=== PATIENT | male | born 1990 | race American Indian/Alaskan Native ===

== ENCOUNTER 2017-12-10 17:48 | Inpatient (IN) | payer OTHER ==
--- NOTE | 2017-12-10 18:11 | Emergency Department Report ---
ED Abdominal Pain HPI - General Stated Complaint: ABD PAIN Time Seen by Provider: 12/10/17 17:55 Source: patient, EMS Mode of arrival: Stretcher Limitations: No Limitations - History of Present Illness Initial Comments: Patient is a 27-year-old male that presents emergency room with left lower quadrant abdominal pain 4 hours via EMS. Patient was picked up by EMS and found to be in SVT at 200 bpm by sono maneuver done by EMS and rate reduced to 150. Patient now complains of chest pain. Patient states the pain is in his left and right chest and is nonradiating. Patient states the pain is abdomen is a 10 out of 10. Patient also complains of shortness of breath. Patient states that the pain in his chest as a 10 out of 10. Patient states the pain in his chest and abdomen are better with rest. Patient states the pain is worse with movement. Patient denies fever and chills. MD Complaint: abdominal pain -: Sudden Location: LLQ Migration to: no migration Severity: severe Severity scale (0 -10): 10 Quality: stabbing Consistency: constant Improves With: rest Worsens With: movement Associated Symptoms: denies: nausea, vomiting, diarrhea, fever, chills, constipation, dysuria, hematemesis, hematochezia, melena, hematuria, anorexia, syncope - Related Data Previous Rx's Medication Instructions Recorded Last Taken Type Ibuprofen [Motrin 600 MG tab] 600 mg PO Q8H PRN #30 tablet 07/10/15 Unknown Rx traMADol [Ultram 50 MG tab] 50 mg PO Q6HR PRN #20 tablet 07/10/15 Unknown Rx Acetaminophen/Codeine [Tylenol #3] 1 tab PO Q6H PRN #12 tab 07/21/15 Unknown Rx Cephalexin [Keflex] 500 mg PO Q8HR #21 cap 07/21/15 Unknown Rx Cephalexin [Keflex] 500 mg PO Q6HR #20 capsule 08/08/15 Unknown Rx Ibuprofen [Motrin 800 MG tab] 800 mg PO Q8HR PRN #20 tablet 08/08/15 Unknown Rx Allergies Allergy/AdvReac Type Severity Reaction Status Date / Time No Known Allergies Allergy Verified 07/10/15 00:50 ED Review of Systems ROS: Stated complaint: ABD PAIN Other details as noted in HPI Comment: All other systems reviewed and negative Constitutional: denies: chills, fever Eyes: denies: eye pain, eye discharge, vision change ENT: denies: ear pain, throat pain Respiratory: denies: cough, shortness of breath, wheezing Cardiovascular: chest pain, palpitations Endocrine: no symptoms reported Gastrointestinal: abdominal pain. denies: nausea, diarrhea Genitourinary: denies: urgency, dysuria Musculoskeletal: denies: back pain, joint swelling, arthralgia Skin: denies: rash, lesions Neurological: denies: headache, weakness, paresthesias Psychiatric: denies: anxiety, depression Hematological/Lymphatic: denies: easy bleeding, easy bruising ED Past Medical Hx - Past Medical History Previous Medical History?: No - Surgical History Past Surgical History?: No - Family History Family history: hypertension - Social History Smoking Status: Current Every Day Smoker Substance Use Type: None - Medications Home Medications: Home Medications Medication Instructions Recorded Confirmed Last Taken Type Ibuprofen [Motrin 600 MG tab] 600 mg PO Q8H PRN #30 tablet 07/10/15 Unknown Rx traMADol [Ultram 50 MG tab] 50 mg PO Q6HR PRN #20 tablet 07/10/15 Unknown Rx Acetaminophen/Codeine [Tylenol #3] 1 tab PO Q6H PRN #12 tab 07/21/15 Unknown Rx Cephalexin [Keflex] 500 mg PO Q8HR #21 cap 07/21/15 Unknown Rx Cephalexin [Keflex] 500 mg PO Q6HR #20 capsule 08/08/15 Unknown Rx Ibuprofen [Motrin 800 MG tab] 800 mg PO Q8HR PRN #20 tablet 08/08/15 Unknown Rx ED Physical Exam - General Limitations: No Limitations General appearance: alert, in no apparent distress - Head Head exam: Present: atraumatic, normocephalic - Eye Eye exam: Present: normal appearance - ENT ENT exam: Present: mucous membranes moist - Neck Neck exam: Present: normal inspection - Respiratory Respiratory exam: Present: normal lung sounds bilaterally. Absent: respiratory distress - Cardiovascular Cardiovascular Exam: Present: regular rate, normal rhythm. Absent: systolic murmur, diastolic murmur, rubs, gallop - GI/Abdominal GI/Abdominal exam: Present: soft, normal bowel sounds - Rectal Rectal exam: Present: deferred - Extremities Exam Extremities exam: Present: normal inspection - Back Exam Back exam: Present: normal inspection - Neurological Exam Neurological exam: Present: alert, oriented X3 - Psychiatric Psychiatric exam: Present: normal affect, normal mood - Skin Skin exam: Present: warm, dry, intact, normal color. Absent: rash ED Course Vital Signs 12/10/17 12/10/17 18:04 18:25 Temperature 97.6 F Pulse Rate 155 H Respiratory 18 Rate Blood Pressure 148/82 O2 Sat by Pulse 96 96 Oximetry - Reevaluation(s) Reevaluation #1: Heart rate is improving with treatment. Will admit patient for further evaluation and treatment. hr = 100 12/10/17 20:08 Reevaluation #2: Abdominal CT pending. All results discussed with patient. Discussed plan of care and admission with patient. Patient agreed to be admitted. Hospitalist consulted. 12/10/17 20:22 ED Medical Decision Making - Lab Data Result diagrams: 12/10/17 18:30 12/10/17 18:30 - EKG Data -: EKG Interpreted by Nd EKG shows normal: sinus rhythm, axis, intervals, QRS complexes Rate: tachycardia - EKG Data Interpretation: other (sinus tachycardia on EKG.) - Medical Decision Making She is 27-year-old male that presented to the emergency room with SVT and tachycardic rhythm and abdominal pain. Patient will be admitted for further evaluation and treatment. Hospitalist was consulted. - Differential Diagnosis cp. sob. abd pain. svt,. tachycardia. Critical Care Time: Yes Critical care attestation.: If time is entered above; I have spent that time in minutes in the direct care of this critically ill patient, excluding procedure time. Critical Care Time: 45 minutes spent with patient for critical care time ED Disposition Clinical Impression: Chest pain, SVT (supraventricular tachycardia), Abdominal pain, SOB (shortness of breath) Disposition: OP ADMIT IP TO THIS HOSP Is pt being admited?: Yes Does the pt Need Aspirin: No Condition: Critical Time of Disposition: 20:37
[2017-12-10] MEDS ORDERED: LOPRESSOR IV ONE ×2 (18:14→18:21)
[2017-12-10] MEDS ORDERED: NACL 0.9% 1000 ML 1,000 ML IV ONE (18:21)
[2017-12-10] MEDS ORDERED: ASPIRIN PO ONE (18:24)
[2017-12-10 18:44] LABS: Basophils # (Auto) 0.1 K/mm3 (0.0-0.1); Basophils % (Auto) 0.5 % (0.0-1.8); Eosinophils # (Auto) 0.1 K/mm3 (0.0-0.4); Eosinophils % (Auto) 0.7 % (0.0-4.3); Hematocrit 39.9 % (35.5-45.6); Hemoglobin 13.4 gm/dl (11.8-15.2); Lymphocytes # (Auto) 1.4 K/mm3 (1.2-5.4); Lymphocytes % (Auto) 12.7 % (13.4-35.0); Mean Corpuscular HGB Conc 34 % (32-34); Mean Corpuscular Hemoglobin 30 pg (28-32); Mean Corpuscular Volume 88 fl (84-94); Monocytes # (Auto) 0.8 K/mm3 (0.0-0.8); Monocytes % (Auto) 6.9 % (0.0-7.3); Platelet Count 130 K/mm3 (140-440); Red Blood Count 4.52 M/mm3 (3.65-5.03); Red Cell Distribution Width 12.8 % (13.2-15.2)
[2017-12-10 19:01] LABS: BUN/Creatinine Ratio 8; Blood Urea Nitrogen 7 mg/dL (9-20); Calcium 8.9 mg/dL (8.4-10.2)
[2017-12-10 19:02] LABS: Alanine Aminotransferase 11 units/L (7-56); Albumin 4.1 g/dL (3.9-5); Hemolysis Index 6
--- NOTE | 2017-12-10 20:20 | Cat Scan Report ---
FINAL REPORT PROCEDURE: CT ABDOMEN PELVIS WO CON TECHNIQUE: Computerized axial tomography of the abdomen and pelvis was performed without intravenous contrast. This study is performed without intravascular contrast material and its sensitivity for abdominal and pelvic pathology, including neoplasms, inflammation, abscess, free fluid, thrombosis, arterial dissection and infarction, is reduced compared with a contrast enhanced study. HISTORY: Abdominal Pain COMPARISON: No prior studies are available for comparison. FINDINGS: Visualized lower thorax: There are infiltrates at the right lung base.. Liver: Normal size and attenuation. Spleen: Normal size and attenuation. Gallbladder and biliary system: Normal. Pancreas: Normal. Adrenals: Normal. Kidneys: There are no kidney stones or ureteral stones. There is no hydronephrosis.. GI tract: There is no bowel obstruction, colitis or enteritis. The appendix is normal.. Lymph nodes and mesentery: Normal. Vasculature: Normal. Bladder: Normal. Reproductive organs: Normal. Peritoneum: There is no ascites or free air, abscess or adenopathy.. Musculoskeletal structures: No significant abnormality. Other: None. IMPRESSION: There is no acute intra-abdominal abnormality. There are pulmonary infiltrates at the right lung base. Focal pneumonitis is suspected..
--- NOTE | 2017-12-10 21:17 | XRay Report ---
FINAL REPORT PROCEDURE: XR CHEST 1V AP TECHNIQUE: Chest radiograph anteroposterior view. CPT 50093 HISTORY: cp COMPARISON: No prior studies are available for comparison. FINDINGS: Heart: Normal. Mediastinum/Vessels: Normal. Lungs/Pleural space: Lungs are clear. There are no infiltrates, effusions or pneumothoraces.. Bony thorax: No acute osseous abnormality. Life support devices: None. IMPRESSION: No acute cardiopulmonary abnormality.
[2017-12-10] MEDS ORDERED: SODIUM CHLORIDE FLUSH SYRINGE 10 ML IV PRN (22:25)
[2017-12-10] MEDS ORDERED: ZOFRAN IV PRN (22:25)
--- NOTE | 2017-12-10 22:34 | History and Physical Report ---
History of Present Illness Date of examination: 12/10/17 History of present illness: 27-year-old man comes to the emergency room complaining of left groin pain that started since which she describes a throbbing sensation, constant, no radiation, intensity 7/10, cannot identify exacerbating or relieving factor. Patient also complaining of palpitation and chest pain. He was having SVT and was chemically converted. He said he has been having palpitation over the last 3 months with chest pain. The chest pain is in the left chest which he describes as a sharp pain, constant, unable to sound along the last 4, intensity followed today and no radiation. Admits to shortness of breath. He was recently admitted at [facility] for symptoms but was discharged from emergency room Review of systems Constitutional: no weight loss, chills Ears, eyes, nose, mouth and throat: no nasal congestion, no nasal discharge, no sinus pressure, no vision change, no red eye. Neck: No neck pain or rigidity. Cardiovascular: + chest pain, palpitations Respiratory: No cough Gastrointestinal: no abdominal pain, hematochezia Genitourinary : no dysuria, frequency , no hematuria Musculoskeletal: no joint swelling or muscle ache Integumentary: no rash, no pruritis Neurological: no parathesias, no numbness, no focal weakness Endocrine: no cold or heat intolerance, no polyuria or polydipsia Hematologic/Lymphatic: no easy bruising, no easy bleeding, no gland swelling Allergic/Immunologic: no urticaria, no angioedema. PAST MEDICAL HISTORY: None PAST SURGICAL HISTORY: None SOCIAL HISTORY: Denies alcohol, tobacco, drugs FAMILY HISTORY: Hypertension Medications and Allergies Allergies Allergy/AdvReac Type Severity Reaction Status Date / Time No Known Allergies Allergy Verified 07/10/15 00:50 Home Medications Medication Instructions Recorded Confirmed Last Taken Type Ibuprofen [Motrin 600 MG tab] 600 mg PO Q8H PRN #30 tablet 07/10/15 Unknown Rx traMADol [Ultram 50 MG tab] 50 mg PO Q6HR PRN #20 tablet 07/10/15 Unknown Rx Acetaminophen/Codeine [Tylenol #3] 1 tab PO Q6H PRN #12 tab 07/21/15 Unknown Rx Cephalexin [Keflex] 500 mg PO Q8HR #21 cap 07/21/15 Unknown Rx Cephalexin [Keflex] 500 mg PO Q6HR #20 capsule 08/08/15 Unknown Rx Ibuprofen [Motrin 800 MG tab] 800 mg PO Q8HR PRN #20 tablet 08/08/15 Unknown Rx Active Meds: Active Medications Acetaminophen (Tylenol) 650 mg PO Q4H PRN PRN Reason: Pain MILD(1-3)/Fever >100.5/HECTOR Enoxaparin Sodium (Lovenox) 30 mg SUB-Q QDAY ELHAM Levofloxacin/Dextrose (Levaquin 750mg/150ml) 750 mg in 150 mls @ 100 mls/hr IV Q24HR ELHAM; Protocol Morphine Sulfate (Morphine) 2 mg IV Q4H PRN PRN Reason: Pain, Moderate (4-6) Ondansetron HCl (Zofran) 4 mg IV Q8H PRN PRN Reason: Nausea And Vomiting Sodium Chloride (Sodium Chloride Flush Syringe 10 Ml) 10 ml IV BID ELHAM Sodium Chloride (Sodium Chloride Flush Syringe 10 Ml) 10 ml IV PRN PRN PRN Reason: LINE FLUSH Exam - Physical Exam Narrative exam: Gen. appearance: Patient lying in bed, no apparent distress HEENT: Normocephalic, atraumatic, pupils equally round and reactive to light, extraocular movement intact, and no sclericterus,. No JVD or thyromegaly or nodule,neck supple, no carotid bruit ,mucous membranes moist, no exudate or erythema Heart: S1, S2, regular rate and rhythm Lungs: Clear to auscultation bilaterally, breathing comfortable Abdomen: Positive bowel sounds, nontender, nondistended, no organomegaly Extremity: No edema, cyanosis, clubbing Skin: No rash, nodules, warm, dry Neuro: Oriented 3, cranial nerves II-12 intact, speech is fluent, motor and sensory intact Groin: Left testicular tenderness, no erythema, swelling - Constitutional Vitals: Temp Pulse Resp BP Pulse Ox 97.6 F 104 H 18 148/82 96 12/10/17 18:04 12/10/17 20:44 12/10/17 18:25 12/10/17 18:04 12/10/17 18:25 Results - Labs CBC & Chem 7: 12/10/17 18:30 12/10/17 18:30 Labs: Abnormal lab results 12/10/17 12/10/17 Range/Units 18:30 18:30 WBC 11.1 H (4.5-11.0) K/mm3 RDW 12.8 L (13.2-15.2) % Plt Count 130 L (140-440) K/mm3 Lymph % (Auto) 12.7 L (13.4-35.0) % Seg Neutrophils % 79.2 H (40.0-70.0) % Seg Neutrophils # 8.7 H (1.8-7.7) K/mm3 Potassium 3.3 L (3.6-5.0) mmol/L Chloride 97.5 L (98-107) mmol/L Carbon Dioxide 19 L (22-30) mmol/L BUN 7 L (9-20) mg/dL Total Protein 8.4 H (6.3-8.2) g/dL - Imaging and Cardiology CT scan - abdomen: report reviewed CT scan - pelvis: report reviewed Assessment and Plan Assessment Community-acquired pneumonia SVT/chest pain Scrotal pain Hypokalemia Thrombocytopenia Plan Admit to medicine Start Levaquin, obtain blood cultures Check cardiac enzymes, echo, consult cardiology Obtain ultrasound of the scrotum Replete potassium DVT prophylaxis
[2017-12-10] MEDS ORDERED: K-DUR PO ONE (23:01)
--- NOTE | 2017-12-10 23:34 | Ultrasound Report ---
FINAL REPORT PROCEDURE: US TESTICULAR DOPPLER COMP TECHNIQUE: Real-time hughes-scale and color flow Doppler sonography in multiple planes of the scrotum, testicles, and epididymes was performed. Velocity spectral waveform analysis Doppler imaging of the arterial inflow and venous outflow of the testicles was performed with image documentation. CPT 19592 and 01345 HISTORY: left testicular pain COMPARISON: No prior studies are available for comparison. FINDINGS: RIGHT TESTICLE: Size: 4 x 2.9 x 3 cm . Appearance: Normal size and echotexture . Arterial blood flow: Normal spectral waveforms, flow velocities and color flow images.. Venous blood flow: Normal spectral waveforms and color flow images. Right epididymis: Normal size and echotexture . Hydrocele: None . LEFT TESTICLE Size: 4.2 x 2.3 x 2.8 cm . Appearance: Normal size and echotexture . Arterial blood flow: Normal spectral waveforms, flow velocities and color flow images.. Venous blood flow: Normal spectral waveforms and color flow images. Leftepididymis: The left epididymis is enlarged and heterogeneous. There is increased blood flow suggesting epididymitis.. Hydrocele: None . IMPRESSION: Left epididymitis. There is no orchitis, testicular mass or torsion. There is no hydrocele.
[2017-12-10 23:36] LABS: Creatine Kinase MB 2.1 ng/mL (0.0-4.0)
[2017-12-11] MEDS ORDERED: LEVAQUIN 750MG/150ML 750 MG/150 ML BAG IV ONE (00:07)
[2017-12-11] MEDS ORDERED: K-DUR PO ONE (00:09)
[2017-12-11] MEDS: LEVAQUIN 750MG/150ML 750 MG/150 ML BAG IV SCH ×2 (00:33→09:04)
[2017-12-11] MEDS ORDERED: TYLENOL ONE ×2 (00:45→01:00)
[2017-12-11] MEDS ORDERED: MORPHINE ONE (01:00)
[2017-12-11] MEDS: MORPHINE IV PRN ×3 (01:00→21:33)
[2017-12-11] MEDS: TYLENOL PO PRN ×2 (01:00→21:34)
[2017-12-11 01:02] LABS: Bacteria,Urine 1+ /HPF (Negative); Bilirubin,Urine NEG (Negative); Blood,Urine SM (Negative); Color,Urine Yellow (Yellow); Protein,Urine <15 mg/dL mg/dL (Negative); Urobilinogen,Urine < 2.0 mg/dL (<2.0)
[2017-12-11 01:03] LABS: WBC,Urine > 182.0 /HPF (0.0-6.0)
[2017-12-11 01:11] LABS: Amphetamine Screen,Urine PRESUMPTIVE NEGATIVE; Benzodiazepines Screen,Urine PRESUMPTIVE NEGATIVE; Cocaine Screen,Urine PRESUMPTIVE NEGATIVE; Methadone Screen,Urine PRESUMPTIVE NEGATIVE; Opiate Screen,Urine PRESUMPTIVE NEGATIVE
[2017-12-11 01:19] LABS: Cannabinoid Screen,Urine PRESUMPTIVE POSITIVE
[2017-12-11 05:22] LABS: Basophils % (Auto) 0.2 % (0.0-1.8); Eosinophils % (Auto) 0.7 % (0.0-4.3); Hematocrit 36.9 % (35.5-45.6); Hemoglobin 12.7 gm/dl (11.8-15.2); Lymphocytes # (Auto) 0.7 K/mm3 (1.2-5.4); Lymphocytes % (Auto) 12.2 % (13.4-35.0); Mean Corpuscular HGB Conc 34 % (32-34); Mean Corpuscular Hemoglobin 30 pg (28-32); Mean Corpuscular Volume 87 fl (84-94); Monocytes # (Auto) 0.8 K/mm3 (0.0-0.8); Monocytes % (Auto) 13.2 % (0.0-7.3); Platelet Count 111 K/mm3 (140-440); Red Blood Count 4.24 M/mm3 (3.65-5.03); Red Cell Distribution Width 12.6 % (13.2-15.2)
[2017-12-11 05:46] LABS: BUN/Creatinine Ratio 10; Blood Urea Nitrogen 7 mg/dL (9-20); Calcium 8.3 mg/dL (8.4-10.2); Creatine Kinase MB 2.9 ng/mL (0.0-4.0); Hemolysis Index 3
[2017-12-11] MEDS: SODIUM CHLORIDE FLUSH SYRINGE 10 ML IV SCH ×2 (09:03→21:35)
[2017-12-11] MEDS ORDERED: LOVENOX SUB-Q SCH (10:00)
--- NOTE | 2017-12-11 11:28 | Consultation ---
History of Present Illness Consult date: 12/11/17 Requesting physician: CHIQUIS OSPINA Consult reason: arrhythmia, chest pain History of present illness: He presented to the emergency department with a five-day history of left lower quadrant pain. He claims that while in the ER, he developed sudden onset of palpitations. However, according to the ER notes, he was noted to be in SVT by the EMS. He apparently converted to sinus rhythm while in the ER. He also complains of intermittent, sharp precordial chest pain. Testicular ultrasound revealed left epididymitis. Past History Past Medical History: No medical history Past Surgical History: No surgical history Social history: single (has 1 child). denies: smoking, alcohol abuse Family history: denies: CAD Medications and Allergies Allergies Allergy/AdvReac Type Severity Reaction Status Date / Time No Known Allergies Allergy Verified 07/10/15 00:50 Home Medications Medication Instructions Recorded Confirmed Last Taken Type No Known Home Medications [No 12/11/17 12/11/17 Unknown History Reported Home Medications] Active Meds: Active Medications Acetaminophen (Tylenol) 650 mg PO Q4H PRN PRN Reason: Pain MILD(1-3)/Fever >100.5/HECTOR Last Admin: 12/11/17 01:00 Dose: 650 mg Levofloxacin/Dextrose (Levaquin 750mg/150ml) 750 mg in 150 mls @ 100 mls/hr IV Q24HR ELHAM; Protocol Last Admin: 12/11/17 09:04 Dose: 100 mls/hr Morphine Sulfate (Morphine) 2 mg IV Q4H PRN PRN Reason: Pain, Moderate (4-6) Last Admin: 12/11/17 08:59 Dose: 2 mg Ondansetron HCl (Zofran) 4 mg IV Q8H PRN PRN Reason: Nausea And Vomiting Sodium Chloride (Sodium Chloride Flush Syringe 10 Ml) 10 ml IV BID ELHAM Last Admin: 12/11/17 09:03 Dose: 10 ml Sodium Chloride (Sodium Chloride Flush Syringe 10 Ml) 10 ml IV PRN PRN PRN Reason: LINE FLUSH Review of Systems Constitutional: no fever, no chills Ears, nose, mouth and throat: no ear pain, no ear discharge, no sore throat Cardiovascular: chest pain, palpitations, no lightheadedness, no shortness of breath Respiratory: no cough, no hemoptysis, no shortness of breath Gastrointestinal: no abdominal pain, no nausea, no vomiting, no diarrhea, no constipation Genitourinary Male: no dysuria, no urinary frequency Rectal: no pain, no bleeding Musculoskeletal: no neck stiffness, no neck pain, no myalgias Integumentary: no rash, no pruritis Neurological: no weakness, no parathesias, no numbness, no headaches Endocrine: no cold intolerance, no heat intolerance Hematologic/Lymphatic: no easy bruising, no easy bleeding Allergic/Immunologic: no urticaria, no wheezing Physical Examination Vital Signs Last Vital Signs Temp 98.2 F 12/11/17 08:17 Pulse 90 12/11/17 10:00 Resp 18 12/11/17 10:00 BP 108/80 12/11/17 08:17 Pulse Ox 99 12/11/17 10:00 General appearance: no acute distress HEENT: Positive: EOMI, Normocephaly, Mucus Membranes Moist Neck: Positive: neck supple, trachea midline Cardiac: Positive: Reg Rate and Rhythm, S1/S2 Lungs: Positive: clear to auscultation Neuro: Positive: Grossly Intact Abdomen: Positive: Soft, Active Bowel Sounds. Negative: Tender Skin: Positive: Clear. Negative: Rash Musculoskeletal: Normal Range of Motion Extremities: Present: normal. Absent: edema Results 12/11/17 05:07 12/11/17 05:07 Cardiac Enzymes 12/10/17 12/10/17 12/11/17 Range/Units 18:30 22:38 05:07 AST 13 (5-40) units/L CK-MB (CK-2) 2.1 2.9 (0.0-4.0) ng/mL CBC 12/10/17 12/11/17 Range/Units 18:30 05:07 WBC 11.1 H 5.9 (4.5-11.0) K/mm3 RBC 4.52 4.24 (3.65-5.03) M/mm3 Hgb 13.4 12.7 (11.8-15.2) gm/dl Hct 39.9 36.9 (35.5-45.6) % Plt Count 130 L 111 L (140-440) K/mm3 Lymph # 1.4 0.7 L (1.2-5.4) K/mm3 Tift # 0.8 0.8 (0.0-0.8) K/mm3 Eos # 0.1 0.0 (0.0-0.4) K/mm3 Baso # 0.1 0.0 (0.0-0.1) K/mm3 Comprehensive Metabolic Panel 12/10/17 12/11/17 Range/Units 18:30 05:07 Sodium 138 144 (137-145) mmol/L Potassium 3.3 L 3.8 (3.6-5.0) mmol/L Chloride 97.5 L 104.9 (98-107) mmol/L Carbon Dioxide 19 L 23 (22-30) mmol/L BUN 7 L 7 L (9-20) mg/dL Creatinine 0.9 0.7 L (0.8-1.5) mg/dL Glucose 88 94 (75-100) mg/dL Calcium 8.9 8.3 L (8.4-10.2) mg/dL AST 13 (5-40) units/L ALT 11 (7-56) units/L Alkaline Phosphatase 63 (35-129) units/L Total Protein 8.4 H (6.3-8.2) g/dL Albumin 4.1 (3.9-5) g/dL - Imaging and Cardiology EKG: image reviewed EKG interpretations - Telemetry EKG Rhythm: PSVT (supraventricular tachyarrhythmia, possibly atrial tachycardia vs Aflutter with 2:1 block) - EKG Sinus rhythms and dysrhythmias: sinus rhythm Assessment and Plan Will initiate a small dose of beta jena if BP permits. Obtain echocardiogram. Schedule Lexiscan stress test with nuclear imaging in a.m. - Patient Problems (1) SVT (supraventricular tachycardia) Current Visit: Yes Status: Acute (2) Chest pain Current Visit: Yes Status: Acute (3) Acute epididymitis Current Visit: Yes Status: Acute
--- NOTE | 2017-12-11 14:14 | Progress Note ---
Assessment and Plan Community-acquired pneumonia/right lower lobe pneumonia - Continue antibiotics, follow chest x-ray SVT/chest pain - Likely afib versus atrial flutter - Cardiology following, started on low-dose beta jena - Plan for stress test tomorrow, normal TSH and T4 UTI, continue antibiotics, follow culture Scrotal pain due to left epididymitis - Continue abx - Testicular ultrasound showed no torsion Hypokalemia, replete and monitor Thrombocytopenia, monitor CBC DVT prophylaxis Lovenox for now, if platelets continue to drop changes to SCD Brief history: 27-year-old male presented to the emergency department with a five-day history of left lower quadrant groin pain. He also complained of chest pain and palpitation. Noted to be on SVT and then converted to normal sinus rhythm in the ER. His CT abdomen and pelvis showed a right lower lung infiltrates and no acute intra-abdominal process. Testicular ultrasound revealed left epididymitis. Radiological exam: CT abdomen and pelvis without contrast: No acute intra-abdominal abnormality. Pulmonary infiltrates at the right lung base. Chest x-ray: No acute process Testicular ultrasound: Left epididymitis, no orchitis testicular mass or torsion. there is no hydrocele. Hospitalist Physical exam: GENERAL: well-developed and well-nourished lying on bed appeared to be in no discomfort. HEENT: Normocephalic. Atraumatic. No conjunctival congestion or icterus. Patient has moist mucous membranes. NECK: Supple. Trachea midline. CHEST/LUNGS: Clear to auscultated bilaterally, breathing nonlabored. No wheezes crackles or rhonchi. HEART/CARDIOVASCULAR: Regular in rate and rhythm. S1 and S2 positive. ABDOMEN: Abdomen is soft, + left groin tenderness. Patient has normal bowel sounds. SKIN: There is no rash. Warm and dry. NEURO: No focal motor deficit. Follows command. MUSCULOSKELETAL: No joint effusion or tenderness. EXTRIMITY: No edema, no cyanosis or clubbing. PSYCH: Cooperative. Subjective Date of service: 12/11/17 Interval history: Patient seen and examined. Medical records and medication list reviewed. No acute event overnight noted by the RN. Patient denies any chest pain or difficulty breathing. Patient is tolerating diet. still has left groin pain Discussed plan of care at bedside with patient. Objective - Constitutional Vitals: Vital Signs - 12hr 12/11/17 12/11/17 12/11/17 02:21 02:28 02:30 Temperature 99.1 F Pulse Rate 90 89 Pulse Rate [ From Monitor] Pulse Rate [ Right Radial] Respiratory 18 18 Rate Blood Pressure 116/70 116/65 Blood Pressure [Right] O2 Sat by Pulse Oximetry 12/11/17 12/11/17 12/11/17 02:41 02:51 03:00 Temperature Pulse Rate 87 92 H 105 H Pulse Rate [ From Monitor] Pulse Rate [ Right Radial] Respiratory 15 16 15 Rate Blood Pressure 116/65 125/59 126/99 Blood Pressure [Right] O2 Sat by Pulse Oximetry 12/11/17 12/11/17 12/11/17 03:11 03:21 03:30 Temperature Pulse Rate 89 92 H 87 Pulse Rate [ From Monitor] Pulse Rate [ Right Radial] Respiratory 16 17 16 Rate Blood Pressure 126/99 111/51 112/55 Blood Pressure [Right] O2 Sat by Pulse Oximetry 12/11/17 12/11/17 12/11/17 03:41 03:50 04:00 Temperature Pulse Rate 87 99 H 78 Pulse Rate [ From Monitor] Pulse Rate [ Right Radial] Respiratory 14 10 L 16 Rate Blood Pressure 112/55 108/57 108/57 Blood Pressure [Right] O2 Sat by Pulse Oximetry 12/11/17 12/11/17 12/11/17 04:10 04:21 04:30 Temperature Pulse Rate 84 82 81 Pulse Rate [ From Monitor] Pulse Rate [ Right Radial] Respiratory 14 14 15 Rate Blood Pressure 115/57 111/60 Blood Pressure [Right] O2 Sat by Pulse Oximetry 12/11/17 12/11/17 12/11/17 04:41 04:51 05:00 Temperature Pulse Rate 79 81 79 Pulse Rate [ From Monitor] Pulse Rate [ Right Radial] Respiratory 15 15 16 Rate Blood Pressure 111/60 109/59 113/59 Blood Pressure [Right] O2 Sat by Pulse Oximetry 12/11/17 12/11/17 12/11/17 05:11 05:30 05:45 Temperature Pulse Rate 84 Pulse Rate [ From Monitor] Pulse Rate [ Right Radial] Respiratory 18 Rate Blood Pressure 113/59 118/83 124/78 Blood Pressure [Right] O2 Sat by Pulse Oximetry 12/11/17 12/11/17 12/11/17 06:00 06:15 06:20 Temperature Pulse Rate Pulse Rate [ From Monitor] Pulse Rate [ Right Radial] Respiratory Rate Blood Pressure 129/79 121/76 121/76 Blood Pressure [Right] O2 Sat by Pulse Oximetry 12/11/17 12/11/17 12/11/17 06:30 06:45 07:00 Temperature Pulse Rate Pulse Rate [ From Monitor] Pulse Rate [ Right Radial] Respiratory Rate Blood Pressure 123/72 126/69 123/76 Blood Pressure [Right] O2 Sat by Pulse Oximetry 12/11/17 12/11/17 12/11/17 07:11 07:21 07:30 Temperature Pulse Rate 84 82 81 Pulse Rate [ From Monitor] Pulse Rate [ Right Radial] Respiratory 15 16 Rate Blood Pressure 128/69 121/76 127/69 Blood Pressure [Right] O2 Sat by Pulse 100 99 Oximetry 12/11/17 12/11/17 12/11/17 07:41 07:51 08:13 Temperature Pulse Rate 84 85 70 Pulse Rate [ From Monitor] Pulse Rate [ Right Radial] Respiratory 15 15 Rate Blood Pressure 127/69 122/69 Blood Pressure [Right] O2 Sat by Pulse 99 100 Oximetry 12/11/17 12/11/17 12/11/17 08:17 10:00 11:27 Temperature 98.2 F 97.8 F Pulse Rate 95 H 91 H Pulse Rate [ 95 H From Monitor] Pulse Rate [ 90 Right Radial] Respiratory 20 18 20 Rate Blood Pressure 130/76 Blood Pressure 108/80 [Right] O2 Sat by Pulse 90 99 100 Oximetry - Labs CBC & Chem 7: 12/11/17 05:07 12/11/17 05:07 Labs: Abnormal lab results 12/10/17 12/10/17 12/10/17 Range/Units 00:25 18:30 18:30 WBC 11.1 H (4.5-11.0) K/mm3 RDW 12.8 L (13.2-15.2) % Plt Count 130 L (140-440) K/mm3 Lymph % (Auto) 12.7 L (13.4-35.0) % Johnston % (Auto) (0.0-7.3) % Lymph # (1.2-5.4) K/mm3 Seg Neutrophils % 79.2 H (40.0-70.0) % Seg Neutrophils # 8.7 H (1.8-7.7) K/mm3 Potassium 3.3 L (3.6-5.0) mmol/L Chloride 97.5 L (98-107) mmol/L Carbon Dioxide 19 L (22-30) mmol/L BUN 7 L (9-20) mg/dL Creatinine (0.8-1.5) mg/dL Calcium (8.4-10.2) mg/dL Total Creatine Kinase (55-170) units/L Total Protein 8.4 H (6.3-8.2) g/dL Urine pH 8.0 H (5.0-7.0) Urine WBC (Auto) > 182.0 H (0.0-6.0) /HPF 12/10/17 12/11/17 12/11/17 Range/Units 22:38 05:07 05:07 WBC (4.5-11.0) K/mm3 RDW 12.6 L (13.2-15.2) % Plt Count 111 L (140-440) K/mm3 Lymph % (Auto) 12.2 L (13.4-35.0) % Johnston % (Auto) 13.2 H (0.0-7.3) % Lymph # 0.7 L (1.2-5.4) K/mm3 Seg Neutrophils % 73.7 H (40.0-70.0) % Seg Neutrophils # (1.8-7.7) K/mm3 Potassium (3.6-5.0) mmol/L Chloride (98-107) mmol/L Carbon Dioxide (22-30) mmol/L BUN 7 L (9-20) mg/dL Creatinine 0.7 L (0.8-1.5) mg/dL Calcium 8.3 L (8.4-10.2) mg/dL Total Creatine Kinase 233 H (55-170) units/L Total Protein (6.3-8.2) g/dL Urine pH (5.0-7.0) Urine WBC (Auto) (0.0-6.0) /HPF 12/11/17 Range/Units 05:07 WBC (4.5-11.0) K/mm3 RDW (13.2-15.2) % Plt Count (140-440) K/mm3 Lymph % (Auto) (13.4-35.0) % Johnston % (Auto) (0.0-7.3) % Lymph # (1.2-5.4) K/mm3 Seg Neutrophils % (40.0-70.0) % Seg Neutrophils # (1.8-7.7) K/mm3 Potassium (3.6-5.0) mmol/L Chloride (98-107) mmol/L Carbon Dioxide (22-30) mmol/L BUN (9-20) mg/dL Creatinine (0.8-1.5) mg/dL Calcium (8.4-10.2) mg/dL Total Creatine Kinase 402 H (55-170) units/L Total Protein (6.3-8.2) g/dL Urine pH (5.0-7.0) Urine WBC (Auto) (0.0-6.0) /HPF
[2017-12-12] MEDS ORDERED: LEXISCAN IV ONE ×2 (08:26→08:27)
[2017-12-12] MEDS ORDERED: PERCOCET 5/325 PO PRN (11:00)
[2017-12-12] MEDS ORDERED: LEVAQUIN PO SCH (12:00)
--- NOTE | 2017-12-12 12:39 | Treadmill Report ---
MYOCARDIAL PERFUSION IMAGING STUDIES Resting images revealed homogeneous radioisotope uptake throughout the myocardium. On post-Lexiscan scan perfusion images again similar uptake is noted. There is no segmental motion abnormality. On gated scan, ejection fraction is noted to be around 61%. IMPRESSION: This test is negative for ischemia. JOB# [id number] GARCIA/NTS
[2017-12-12] MEDS ORDERED: LOPRESSOR PO SCH (13:00)
--- NOTE | 2017-12-12 13:00 | Progress Note ---
Assessment and Plan Assessment: Transient SVT v. sinus tachycardia --> SR Chest pain, atypical - currently resolved Acute epididymitis Plan: S/p lexiscan MPI stress test this AM which was negative for ischemia, EF 61%. Echo reviewed - EF 55-60%, trace TR. Initiate low dose lopressor. Currently stable cardiac status. Pt may discharge home from cardiology standpoint. Recommend pt to follow up with Dr. Cox within 2 weeks of hospital discharge ([phone]). The patient has been seen in conjunction with Dr. Pendleton who agrees with the assessment and plan of care. Subjective Date of service: 12/12/17 Principal diagnosis: palpitations Interval history: pt for stress test this AM. no current complaints. Objective Last Vital Signs Temp 98.9 F 12/12/17 00:52 Pulse 62 12/12/17 00:52 Resp 20 12/12/17 00:52 BP 142/64 12/12/17 00:52 Pulse Ox 100 12/12/17 00:52 - Physical Examination General: No Apparent Distress HEENT: Positive: EOMI, Normocephaly, Mucus Membranes Moist Neck: Positive: neck supple, trachea midline Cardiac: Positive: Reg Rate and Rhythm, S1/S2 Lungs: Positive: clear to auscultation Neuro: Positive: Grossly Intact Abdomen: Positive: Soft, Active Bowel Sounds. Negative: Tender Skin: Positive: Clear. Negative: Rash Musculoskeletal: Normal Range of Motion Extremities: Present: normal. Absent: edema - Imaging and Cardiology EKG: image reviewed - Telemetry EKG Rhythm: Sinus Rhythm - EKG Sinus rhythms and dysrhythmias: sinus rhythm
--- NOTE | 2017-12-12 13:13 | Discharge Summary ---
Providers - Providers Date of Admission: 12/10/17 22:25 Attending physician: AVILA MAX MD 12/10/17 22:25 Consult to Physician [CONS] Routine Comment: Consulting Provider: ALLISON JORDAN Physician Instructions: Reason For Exam: svt/cp Primary care physician: DIDI CHARLES Hospitalization Reason for admission: Epididimitis, SVT Condition: Critical Pertinent studies: CT abdomen and pelvis right lung base infiltrates. Testicular U/S: left epididymitis, no orchitis or torsion Cardiac stress test; no acute ischemia Echo: normal Hospital course: 27-year-old man comes to the emergency room complaining of left groin pain that started since which she describes a throbbing sensation, constant, no radiation, intensity 7/10, cannot identify exacerbating or relieving factor. Patient also complaining of palpitation and chest pain. He was having SVT and was chemically converted. He said he has been having palpitation over the last 3 months with chest pain. The chest pain is in the left chest which he describes as a sharp pain, constant, unable to sound along the last 4, intensity followed today and no radiation. Admits to shortness of breath. He was recently admitted at [place] for symptoms but was discharged from emergency room. Patient was admitted to the floor for the management of epididymitis, RLL pneumonia and SVT. patient was initially treated with IV antibiotics and pain control. Cardiology was consulted and cardiac workup was negative. Patient was treated with metoprolol. Patient showed improvement and was discharged with levaquin, metoprolol and pain medications. Patient was hemodynamically stable at the time of discharge. Disposition: - TO HOME OR SELFCARE Time spent for discharge: 31 minutes - Discharge Diagnoses (1) Abdominal pain Status: Acute (2) Acute epididymitis Status: Acute (3) Chest pain Status: Acute (4) SVT (supraventricular tachycardia) Status: Acute (5) Right lower lobe pneumonia Status: Acute Qualifiers: Pneumonia type: due to unspecified organism Qualified Code(s): J18.1 - Lobar pneumonia, unspecified organism Core Measure Documentation - Palliative Care Palliative Care/ Comfort Measures: Not Applicable - Core Measures Any of the following diagnoses?: none Exam - Constitutional Vitals: Temp Pulse Resp BP Pulse Ox 98.9 F 62 20 142/64 100 12/12/17 00:52 12/12/17 00:52 12/12/17 00:52 12/12/17 00:52 12/12/17 00:52 General appearance: Present: no acute distress - EENT Eyes: Present: PERRL, EOM intact ENT: hearing intact, clear oral mucosa, dentition normal - Neck Neck: Present: supple, normal ROM - Respiratory Respiratory effort: normal Respiratory: bilateral: CTA - Cardiovascular Rhythm: regular Heart Sounds: Present: S1 & S2 - Extremities Extremities: no ischemia Peripheral Pulses: within normal limits - Abdominal General gastrointestinal: Present: soft, non-tender, non-distended Male genitourinary: Present: normal (Left testes tenderness) - Integumentary Integumentary: Present: clear, warm, dry - Musculoskeletal Musculoskeletal: strength equal bilaterally - Psychiatric Psychiatric: appropriate mood/affect - Neurologic Neurologic: CNII-XII intact - Allied Health Allied health notes reviewed: nursing, social work, case management Plan Activity: no restrictions Weight Bearing Status: Full Weight Bearing Diet: regular Follow up with: DIDI CHRALES MD [Primary Care Provider] - 7 Days Forms: Work/School Release Form Prescriptions: Levofloxacin [Levaquin TAB] 750 mg PO Q24HR #10 tablet Metoprolol [Lopressor TAB] 12.5 mg PO BID #60 tablet oxyCODONE /ACETAMINOPHEN [Percocet 5/325 mg] 2 tab PO Q6H PRN #15 tablet PRN Reason: Pain, Moderate (4-6)
[2017-12-12 13:45] VITALS: BP 125/79
== END 2017-12-12 15:13 | disposition home or self-care (01) | DRG 727 ==
LOC: ED 17:48 → 4A 22:25
PROVIDERS: ADMIT Internal Medicine; ATTEND Internal Medicine
DX: N45.1 Epididymitis (principal); J18.1 Lobar pneumonia, unspecified organism; I47.1 Supraventricular tachycardia; N39.0 Urinary tract infection, site not specified; F17.200 Nicotine dependence, unspecified, uncomplicated; Z82.49 Family history of ischemic heart disease and other diseases of the circulatory system; D69.6 Thrombocytopenia, unspecified; R07.89 Other chest pain
CPT/HCPCS: 36415; 71045; 74176; 78452; 80048; 80053; 80307; 81001; 82150; 82550; 82553; 83690; 83735; 84439; 84443; 84484; 85025; 85379; 87040; 93005; 93010; 93017; 93306; 93975; 96361; 96374; A9502; J1956; J2270; J2405; J2785; J7030